=== PATIENT | male | born 1985 | race African-American/Black ===

== ENCOUNTER 2017-07-05 12:06 | Emergency (ER) | payer OTHER ==
[~2017-07-05] VITALS: Ht 170.2 cm; Wt 95.0 kg
[2017-07-05] MEDS ORDERED: KEFLEX500 MG PO (12:18)
[2017-07-05 12:52] VITALS: BP 130/80
== END 2017-07-05 13:00 | disposition home or self-care (01) | DRG 605 ==
LOC: ED 12:06
PROC: 0HQFXZZ Repair Right Hand Skin, External Approach (ICD-10-PCS; principal; 2017-07-05)
DX: S61.214A Laceration without foreign body of right ring finger without damage to nail, initial encounter (principal); W25.XXXA Contact with sharp glass, initial encounter; Y93.9 Activity, unspecified; Y92.009 Unspecified place in unspecified non-institutional (private) residence as the place of occurrence of the external cause

== ENCOUNTER 2017-07-14 10:13 | Emergency (ER) | payer OTHER ==
[~2017-07-14] VITALS: Ht 170.2 cm; Wt 94.0 kg
[~2017-07-14 10:13] MED LIST: KEFLEX500 MG PO
[2017-07-14 10:45] VITALS: BP 138/88
== END 2017-07-14 10:45 | disposition home or self-care (01) | DRG 950 ==
LOC: ED 10:13
DX: S61.214D Laceration without foreign body of right ring finger without damage to nail, subsequent encounter (principal)

== ENCOUNTER 2020-10-10 08:28 | Emergency (ER) | payer OTHER, BC ==
[~2020-10-10] VITALS: Ht 170.2 cm; Wt 90.0 kg
[2020-10-10 09:13] VITALS: BP 134/77
== END 2020-10-10 09:18 | disposition home or self-care (01) | DRG 923 ==
LOC: ED 08:28
DX: Z04.1 Encounter for examination and observation following transport accident (principal)